=== PATIENT | male | born 1965 | race Caucasian/White ===

== ENCOUNTER 2018-06-15 01:02 | Emergency (ER) | payer OTHER ==
[~2018-06-15] VITALS: Ht 188 cm; Wt 93.0 kg
[~2018-06-15 01:02] MED LIST: CEFUROXIME250 MG PO; KETO10TA2 PO
== END 2018-06-15 09:05 | disposition home or self-care (01) ==
LOC: ER 01:02 → CPU-OBS 01:04 → ER 09:05
DX: R07.89 Other chest pain (principal); M79.632 Pain in left forearm; M62.838 Other muscle spasm
CPT/HCPCS: G0378; G0379; 93005